=== PATIENT | female | born 1990 | race Caucasian/White ===

== ENCOUNTER 2017-04-24 19:05 | Emergency (ER) | payer SELFPAY ==
[~2017-04-24 19:05] MED LIST: PREN0.01 PO; VENTAER INH
--- NOTE | 2017-04-24 19:46 | PD ---
HPI Chief Complaint Pelvic pain Date Seen: April 24, 2017 Time Seen: 19:43 Travel History International Travel<30 Days: No Contact w/Intl Traveler<30Days: No Known Affected Area: No History of Present Illness HPI 26-year-old who is at 22 weeks 4 days by last menstrual period of 2016. Patient complains of pain in the lower pelvis crampy in nature close to the inguinal ligament on both sides. Denies vaginal bleeding uterine contractions, denies vaginal discharge. Patient had a single visit with Wendy Lara in early but has not seen a provider since that time denies any issues with her previous she delivered vaginally. Para: 1 : 2 History Past Medical History Medical History: Denies Significant Hx Obstetric History Obstetric History Spontaneous vaginal delivery Past Surgical History Surgical History: No Previous Surgery Family History Family History: Negative Social History Alcohol Use: No Tobacco Use: No Substance Abuse: No Allergies-Medications (Allergen,Severity, Reaction): Coded Allergies: No Known Allergies (Unverified , 03/04/16) Home Meds Active Scripts Albuterol Sulfate (Ventolin Hfa)18 Gm Aero2 Puff INH ONCE #1 BOX * SHAKE WELL BEFORE USE * Prov:Shavon Cardona MD 11/14/15 Reported Medications Multivit/Min/Fol Ac/Iron/Pren ( Vit ( Plus)) Tab1 Tab PO DAILY 11/14/15 Review of Systems Except as stated in HPI: all other systems reviewed are Neg Physical Exam Narrative GENERAL: Well-nourished, well-developed patient. SKIN: Warm and dry. HEAD: Normocephalic and atraumatic. EYES: No scleral icterus. No injection or drainage. ABDOMEN/GI: Abdomen soft, non-tender, bowel sounds present, no rebound, no guarding Gravid to [-22] weeks size Fundal Height: [22-] GENITOURINARY: External Genitalia: intact and normal in appearance BUS glands: [-Normal] Cervix: [-Posterior] Dilatation: [Closed-] Effacement: [Long-] Station: [-High] Presentation: [-] Membranes: [intact ] Uterine Contractions: [Absent-] FHT's: 152 EXTREMITIES: No cyanosis or edema. BACK: Nontender without obvious deformity. No CVA tenderness. NEUROLOGICAL: Awake and alert. Motor and sensory grossly within normal limits. Five out of 5 muscle strength in all muscle groups. Normal speech. Data Data Vital Signs Reviewed: Yes Orders Vital Signs (Adult) .ON ADMISSION (04/24/17 19:39) ^ Labor Status (04/24/17 19:39) Urinalysis - C+S If Indicated (04/24/17 19:39) Gc And Chlamydia Pcr (04/24/17 19:39) Rubella Immune Status (04/24/17 19:39) Hepatitis Profile (04/24/17 19:39) Rapid Plasma Regin (Rpr) W Ttr (04/24/17 19:39) Type And Screen (04/24/17 19:39) Complete Blood Count With Diff (04/24/17 19:39) Special Serology (04/24/17 19:39) Labs Laboratory Tests Test 04/24/17 19:45 Urine Color LIGHT-YELLOW Urine Turbidity CLEAR Urine pH 6.5 Urine Specific [place] 1.003 Urine Protein NEG mg/dL Urine Glucose (UA) NEG mg/dL Urine Ketones NEG mg/dL Urine Occult Blood NEG Urine Nitrite NEG Urine Bilirubin NEG Urine Urobilinogen LESS THAN 2.0 MG/DL Urine Leukocyte Esterase NEG Urine Squamous Epithelial 1 /hpf Cells Microscopic Urinalysis Comment CULT NOT INDICATED MDM Plan 26yo at 22 weeks gestation Discomforts of - 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
[2017-04-24 20:01] LABS: BLOOD, URINE NEG (NEG); COMMENT (UR) CULT NOT INDICATED; CULTURE IF INDICATED CULT NOT INDICATED; GLUCOSE,URINE NEG (NEG); KETONE, URINE NEG (NEG); NITRITE,URINE NEG (NEG); PH, URINE 6.5 (5.0-8.5); SQUAMOUS EPITHELIAL CELL URINE 1 /hpf (0-5); URINE COLOR LIGHT-YELLOW (YELLW/STRAW)
[2017-04-24 20:27] LABS: BASOPHIL % 0.2 % (0.0-2.0); EOSINOPHIL # 0.1 TH/MM3 (0-0.4); HEMATOCRIT 36.7 % (35.0-46.0); HEMO FLAGS DIFF FINAL; LYMPH % 21.5 % (9.0-44.0); LYMPHOCYTE # 2.1 TH/MM3 (1.0-4.8); MEAN CELL VOLUME 87.9 FL (80.0-100.0); MEAN CORPUSCULAR HEMOGLOBIN 30.1 PG (27.0-34.0); MEAN CORPUSCULAR HGB CONC 34.3 % (32.0-36.0); MONO % 6.7 % (0.0-8.0); NEUT % 70.6 % (16.0-70.0); PLATELET COUNT 201 TH/MM3 (150-450); RED BLOOD COUNT 4.18 MIL/MM3 (4.00-5.30); RED CELL DISTRIBUTION WIDTH 13.6 % (11.6-17.2)
[2017-04-24 20:49] LABS: RUBELLA STATUS INDETERMINATE (IMMUNE)
[2017-04-24 22:17] LABS: CHLAMYDIA PCR NOT DETECTED (NOT DETECT); NEISSERIA PCR NOT DETECTED (NOT DETECT)
[2017-04-25 10:30] LABS: RAPID PLASMA REAGIN SCREEN NON-REACTIVE (NON-REACTVE)
== END 2017-04-24 20:23 | disposition home or self-care (01) ==
LOC: HOBED 19:05
DX: O26.892 Other specified pregnancy related conditions, second trimester (principal); R10.2 Pelvic and perineal pain; Z3A.22 22 weeks gestation of pregnancy
CPT/HCPCS: 80074; 81001; 85025; 86592; 86703; 86762; 86850; 86900; 86901; 87491; 87591; 99284

== ENCOUNTER 2017-05-25 17:06 | Emergency (ER) | payer MEDICAID ==
[~2017-05-25] VITALS: Ht 167.6 cm; Wt 92.0 kg
[2017-05-25 17:08] VITALS: BP 152/74; PULSE 81; RESP 15; RESP 22; TEMP 98.6; O2SAT 99
--- NOTE | 2017-05-25 17:22 | PD ---
HPI Chief Complaint: ENT Complaint Time Seen by Provider: 17:13 Travel History International Travel<30 days: No Contact w/Intl Traveler<30days: No Traveled to known affect area: No History of Present Illness HPI This is a 26 year old female who presents to the emergency department with several days of sore throat, bilateral ear pain, and itching and pain in her right eye with clear drainage, constant, moderate severity. She is 27 weeks . She reports normal movement with no bleeding or abdominal discomfort. Her toddler son is also sick with a rash and fever. 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 PFSH Past Medical History Asthma: Yes Respiratory: Yes (ASTHMA) ?: LMP: 10/18/16 Social History Alcohol Use: No Tobacco Use: No Substance Use: No Allergies-Medications (Allergen,Severity, Reaction): Coded Allergies: No Known Allergies (Unverified , 03/04/16) Reported Meds & Prescriptions Reported Meds & Active Scripts Active Reported Plus Iron 29-1 mg ( Vit-Iron Carbonyl) 1 Tab Tab 1 Tab PO DAILY Review of Systems Except as stated in HPI: all other systems reviewed are Neg Physical Exam Narrative GENERAL:Well appearing, no acute distress SKIN: Focused skin assessment warm and dry. HEAD: Atraumatic. Normocephalic. EYES: Conjunctival injection with clear drainage of the right eye. ENT: Mild posterior pharyngeal erythema with minimal exudate on the left tonsil with no uvular deviation or posterior pharyngeal assymetry NECK: Trachea midline. No cervical lymphadenopathy CARDIOVASCULAR: Regular rate and rhythm. No murmur appreciated. RESPIRATORY: Clear to auscultation. Breath sounds equal bilaterally. GASTROINTESTINAL: Abdomen soft, non-tender, nondistended. MUSCULOSKELETAL: No obvious deformities. NEURO: Moving all extremities. PSYCHIATRIC: Appropriate mood and affect; insight and judgment normal. Data Data Last Documented VS Vital Signs Date Time Temp Pulse Resp B/P Pulse Ox O2 Delivery O2 Flow Rate FiO2 05/25/17 17:15 16 05/25/17 17:08 98.6 81 152/74 99 Orders Group A Rapid Strep Screen (05/25/17 17:19) Strep Culture (Group A) (05/25/17 17:20) MDM Medical Decision Making Medical Screen Exam Complete: Yes Emergency Medical Condition: Yes Interpretation(s) Afebrile, no tachycardia, hypertensive Strep is negative Differential Diagnosis Strep pharyngitis, viral pharyngitis, viral syndrome, conjunctivitis Narrative Course This is a 26-year-old female who presents to the emergency department with sore throat and conjunctivitis. Her young child is also sick with a viral syndrome. She is very well-appearing. She is having no obvious complications of at this time. Rapid strep was negative. I suspect the patient has viral syndrome. She will be prescribed erythromycin ointment for her conjunctivitis. She is appropriate for outpatient management. Diagnosis Primary Impression: Viral syndrome Patient Instructions: General Instructions Additional Instructions: If you develop severe chest pain, shortness of breath, sweating, lightheadedness , dizziness or difficulty breathing return to the emergency department immediately. Followup with your primary care physician in 2-3 days if your symptoms are not resolved. Med/Other Pt SpecificInfo: Prescription(s) given Scripts Erythromycin Opth Oint 5 Mg/Gm Oint1 Applic RIGHT EYE QID #1 TUBE Ref 0 Prov:Leidy Malin MD 05/25/17 Disposition: 01 DISCHARGE HOME Condition: Stable Leidy Malin MD May 25, 2017 17:22
[2017-05-25] MEDS ORDERED: PREN29TA PO (17:44)
[2017-05-25] MEDS ORDERED: ERYTOIN10 RIGHT EYE (18:05)
== END 2017-05-25 18:34 | disposition home or self-care (01) ==
LOC: NEPD 17:06
DX: O26.899 Other specified pregnancy related conditions, unspecified trimester (principal); B34.9 Viral infection, unspecified; J45.909 Unspecified asthma, uncomplicated; Z3A.27 27 weeks gestation of pregnancy
CPT/HCPCS: 87081; 87880; 99283